=== PATIENT | male | born 1960 | race Asian ===

== ENCOUNTER 2018-05-19 18:11 | Emergency (ER) | payer BC ==
[~2018-05-19] VITALS: Ht 177.8 cm; Wt 68.0 kg
[2018-05-19] MEDS ORDERED: Methocarbamol 750mg tab ORAL ONE (18:30)
--- NOTE | 2018-05-19 19:38 | Diagnostic Imaging Report ---
EXAM: XR Chest, 2 Views CLINICAL HISTORY: PAIN TECHNIQUE: Frontal and lateral views of the chest. COMPARISON: No relevant prior studies available. FINDINGS: Lungs: Unremarkable. No consolidation. Pleural space: Unremarkable. No pneumothorax. Heart: Unremarkable. No cardiomegaly. Mediastinum: Unremarkable. Bones/joints: Unremarkable. IMPRESSION: Normal chest x-rays.
[2018-05-19] MEDS ORDERED: IBUPROFEN600 MG ORAL (20:18)
[2018-05-19] MEDS ORDERED: ROBAXIN-750750 MG PO (20:18)
[2018-05-19 20:53] VITALS: BP 123/85
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
== END 2018-05-19 20:45 | disposition home or self-care (01) ==
LOC: EDBD 18:11 → EMR 19:22
DX: S29.011A Strain of muscle and tendon of front wall of thorax, initial encounter (principal); S20.212A Contusion of left front wall of thorax, initial encounter; S20.319A Abrasion of unspecified front wall of thorax, initial encounter; V43.62XA Car passenger injured in collision with other type car in traffic accident, initial encounter; Y92.410 Unspecified street and highway as the place of occurrence of the external cause
CPT/HCPCS: 71046; 99283